=== PATIENT | male | born 1965 | race Hispanic/Latino ===

== ENCOUNTER 2017-10-21 15:54 | Outpatient (CLI) | payer BC | END 2017-10-21 15:55 | disposition home or self-care (01) | LOC: BICRAD 15:54 | PROVIDERS: ATTEND Family Medicine | DX: R76.11 Nonspecific reaction to tuberculin skin test without active tuberculosis (principal) | CPT/HCPCS: 71046 ==

== ENCOUNTER 2018-11-11 14:23 | Outpatient (CLI) | payer OTHER ==
--- NOTE | 2018-11-11 15:25 | RAD ---
EXAM: Chest PA and lateral: HISTORY: Positive TB: Chest COMPARISON: None FINDINGS: Heart size:Within normal limits. Lungs:Clear of acute process. No confluent pneumonia, overt edema, pleural effusion, or other acute process. IMPRESSION: No significant acute intrathoracic disease.
== END 2018-11-11 14:24 | disposition home or self-care (01) ==
LOC: BICRAD 14:23
PROVIDERS: ATTEND Family Medicine
DX: R76.12 Nonspecific reaction to cell mediated immunity measurement of gamma interferon antigen response without active tuberculosis (principal)
CPT/HCPCS: 71046